=== PATIENT | female | born 2005 | race Caucasian/White ===

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

== ENCOUNTER → 2023-07-12 14:19 | Outpatient (CLI) | payer OTHER, SELFPAY ==
--- NOTE | 2023-07-12 14:22 | DI.RAD.S_ITS ---
PROCEDURE: XR LUMBAR SPINE 2-3V INDICATIONS: L I lifting injury L3-5 tender TECHNIQUE: 3 views of the lumbar spine were acquired. COMPARISON: None. FINDINGS: Bones: 5 [id number] vertebrae are present. There is normal bony alignment. No vertebral body compression fractures. No suspicious bony lesions. Soft tissues: Overlying bowel gas pattern is normal. No suspicious soft tissue calcifications. IMPRESSION: No acute bony abnormality. Dictated by: Adama Roland M.D. on 07/12/2023 at 14:52 Approved by: Adama Roland M.D. on 07/12/2023 at 14:52
== END ==
LOC: RAD 14:21
PROVIDERS: Family Provider Family Medicine; Referring Provider Student in an Organized Health Care Education/Training Program; Visit Provider Student in an Organized Health Care Education/Training Program
DX: S39.012A Strain of muscle, fascia and tendon of lower back, initial encounter (principal); M54.50 Low back pain, unspecified; X50.0XXA Overexertion from strenuous movement or load, initial encounter
CPT/HCPCS: 72100

== ENCOUNTER 2023-09-03 00:05 | Emergency (ER) | payer OTHER, MEDICAID, SELFPAY ==
[2023-09-03 00:09] VITALS: BP 134/74; PULSE 110; RESP 18; O2SAT 99; BMI 35.6
[2023-09-03 00:19] VITALS: PULSE 104; RESP 18; O2SAT 99
[2023-09-03 00:30] VITALS: BP 121/89; PULSE 121; O2SAT 99
--- NOTE | 2023-09-03 00:30 | PC.NURSE ---
patient sitting up in [place]. Call light in reach, seizure precautions in place.
--- NOTE | 2023-09-03 00:33 | ED.SEIZURE ---
HPI - Seizure General Chief Complaint: Seizure Stated Complaint: Seizures Time Seen by Provider: 09/03/23 00:31 Source: patient and EMS Mode of arrival: EMS History of Present Illness HPI Narrative: 18-year-old woman brought in by medics with reports of a seizure. She reportedly has a history of pseudoseizures had been on medications at 1 point but nothing for the last at least 3 years and no seizures in that timeframe. She states that she had a little bit of alcohol this evening but denies any other recreational drugs. Medics were called earlier this evening with reports of a seizure and she declined transport. She had a 2nd seizure shortly thereafter medics return and they to witnessed a grand mal tonic-clonic type seizure lasting approximately 50 seconds. She was not particularly confused afterward. There was no loss of bowel or bladder. No biting of her tongue and no significant abrasions or contusions from the seizure-like activity. Patient was given 5 mg of IM Versed by medics. She is appropriately sedated without specific complaints on arrival. She denies any recent fever, cough, chills. She does not state that today has been any more stressful than other days. Related Data Previous Rx's Medication Instructions Recorded epinephrine 0.3 mg/0.3 mL 0.3 mg (0.3 mL) IM ONCE #2 ea 01/29/20 injection, auto-injector Allergies Allergy/AdvReac Type Severity Reaction Status Date / Time hydrocortisone Allergy Severe BLISTERS Verified 07/12/23 13:26 [HYDROCORTISONE] Penicillins Allergy Severe ANAPHYLAXIS Verified 07/12/23 13:26 adhesive tape Allergy Intermediate Blisters/ra Verified 07/12/23 13:26 sh/redness. latex Allergy Intermediate Blisters, Verified 07/12/23 13:26 redness. phenytoin [From Dilantin] Allergy Intermediate Rash/Hives/ Verified 07/12/23 13:26 Blisters amoxicillin Allergy Mild RASH Verified 07/12/23 13:26 venom-honey bee Allergy Mild swelling Verified 07/12/23 13:26 and hives acetaminophen [From Tylenol] AdvReac Vomit Verified 07/12/23 13:26 Review of Systems Review of Systems Narrative: Pertinent positive and negative findings as per HPI Patient History Medical History Small for gestational age fetus Foot fracture, right (~2019) Leg fracture, right (~2018) Pneumonia Exercise-induced asthma (~2009) Hypothyroid (~2015) Early stage of Transgender Hematuria Therapeutic drug monitoring Rage attacks Proteinuria Encounter for oral contraception initial prescription (08/2019) Suicidal ideation Depression (~2014) 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 Social History marital status: unmarried,living together household members: significant other and children housing: house pets and animals: Yes (3 dogs: safe with baby.) special tika needs: No seatbelt use: always Smoking Status: Current every day smoker Tobacco: How many years used: 7 quit status: considering quitting second hand exposure: Yes alcohol intake: never substance use type: does not use and marijuana (Once in a [place], not since . ) well-balanced diet: daily or most days daily servings fruits/ve-4 caffeine: No Smoking Status: Current every day smoker tobacco type: cigarettes and vaping alcohol intake frequency: holidays/special occasions only Substance Use Type: marijuana Exam Initial Vital Signs Initial Vital Signs: Vital Signs Pulse Rate 110 H 09/03/23 00:09 Respiratory Rate 18 09/03/23 00:09 Blood Pressure 134/74 09/03/23 00:09 Pulse Oximetry 99 09/03/23 00:09 Oxygen Delivery Method Room Air 09/03/23 00:09 General: Slightly sedated and in no acute distress. Able to cooperate with exam. HEENT: Moist mucous membranes, normal sclera with reactive pupils, no injuries to her tongue Respiratory: Lungs are clear to auscultation, no wheezing no rales no rhonchi. Full and symmetrical air movement Cardiac: Regular rate and rhythm no murmurs no bruits Abdomen: Soft, nontender, good bowel tones, no flank pain Skin: Warm and dry, no rashes, no bruises Neurologic: Sedated from the eye and Versed, Grossly neurologically intact with no obvious asymmetries or abnormalities, she has not hyperreflexic she does not have any clonus Extremities: No trauma, well perfused Psych: Sedated with in admissions slightly lowered Course Orders Ordered: ED Orders 09/03/23 00:31 Complete Blood Count AUTO DIFF Stat Comprehensive Metabolic Panel Stat Ethanol (ETOH) Stat Urinalysis and Microscopic Stat urine tox [Urine Drug Screen, Rapid] Stat Vital Signs Vital signs: Vital Signs - 8 hr 09/03/23 00:09 09/03/23 00:19 Pulse Rate 110 H 104 H Respiratory Rate 18 18 Blood Pressure 134/74 Pulse Oximetry 99 99 Oxygen Delivery Method Room Air Room Air MDM - Seizure MDM Narrative Medical decision making narrative: CC: Seizure Complicating co-morbidities: History of pseudoseizures in the past, no seizures for the last 3 years. She has had a history of major depression with psychotic features Data collected from: patient Medical records reviewed: Prior ER visits, psychosocial notes and primary care notes are reviewed. Differential considered: Intoxication, pseudo-seizure, medication side effect, epileptic seizure. No suggestion of trauma do not suggest intracranial bleed and no suggestion of infection Exam documented above, pertinent findings include: Patient is sedated from the IM Versed and exam is otherwise benign with no suggestion of hyperreflexia Lab Test results independently reviewed as above. Pertinent findings: CBC shows mild leukocytosis without left shift. Suspect that this is demargination from seizure. No anemia Metabolic panel shows potassium at 2.9 remainder of labs are reassuring Urine appears contaminated with squamous cells mucus there are bacteria we will wait for culture, do not suspect urinary tract infection at this time Urine tox screen is negative Alcohol level is 59 Discussion: Patient demands to be discharged. She has a cousin and a friend who are willing to help take her home. Her grandparents are at home as him like they are frequently primary caregivers. I have suggested continued observation given the fact that she has had recurrent seizures today. She is fixated on getting to work at 6:00 a.m. and chooses to leave against medical advice. Against Medical Advice forms are filled out Discharge Plan Departure Patient Disposition: Left Against Medical Advice Clinical Impression: Seizure Prescriptions: No Action epinephrine 0.3 mg/0.3 mL auto-injector 0.3 mg IM ONCE Qty: 2 0RF Rx Instructions: as a single dose; may repeat once Stand Alone Forms: Patient Portal/API, Against Medical Advice
[2023-09-03 00:43] LABS: Add Manual Diff / Slide Review NO; Basophils Absolute Auto 100 /uL (0-100); Basophils Percent Auto 0.5 % (0-2); Eosinophils Absolute Auto 100 /uL (0-450); Eosinophils Percent Auto 0.9 % (2-4); Hematocrit 41.6 % (36-46); Lymphocytes Absolute Auto 4700 /uL (1100-4500); Lymphocytes Percent Auto 32.8 % (25-40); Mean Corpuscular HGB Conc 33.7 % (30-36); Mean Corpuscular Hemoglobin 28.4 PG (26-34); Mean Corpuscular Volume 84.2 fL (80-100); Monocytes Absolute Auto 800 /uL (0-900); Monocytes Percent Auto 5.4 % (3-14); Neutrophils Absolute Auto 8700 /uL (1500-7000); Neutrophils Percent Auto 60.4 % (50-75); Platelet Count 374 X10^3/uL (150-400); Red Blood Cell Count 4.94 X10^6/uL (4.0-5.2); Red Cell Distribution Width 13.6 % (11.6-14.8); White Blood Cell Count 14.4 X10^3/uL (4.5-11.0)
[2023-09-03 00:46] LABS: Alanine Aminotransferase 25 IU/L (<35); Albumin 4.8 g/dL (3.5-5.0); Albumin Globulin Ratio 1.3 (1.0-2.8); Alkaline Phosphatase 67 U/L (38-126); Aspartate Aminotransferase 32 IU/L (14-36); BUN Creatinine Ratio 13.9 (6-22); Bilirubin Total 0.7 mg/dL (0.2-1.3); Blood Urea Nitrogen 11 mg/dL (7-17); Calcium 9.5 mg/dL (8.4-10.2); Carbon Dioxide 15 mmol/L (22-32); Chloride 111 mmol/L (98-107); Estimated Glomerular Filt Rate > 60 mL/min (>60); Ethanol (ETOH) 59 mg/dL; Globulin 3.7 g/dL (1.7-4.1); Glucose 130 mg/dL (70-100); HEMOLYSIS < 15 (0-50); Sodium 144 mmol/L (137-145); Total Protein 8.5 g/dL (6.3-8.2)
[2023-09-03 00:46] LABS: Appearance Urine UA CLEAR; Bilirubin Urine UA NEGATIVE (NEGATIVE); Color Urine UA YELLOW; Glucose Urine UA NEGATIVE (Negative); Ketones Urine UA NEGATIVE (NEGATIVE); Leukocyte Esterase Urine UA NEGATIVE (NEGATIVE); Nitrite Urine UA NEGATIVE (Negative); Occult Blood Urine UA 1+ (Negative); Protein Urine UA TRACE (Negative); Specific Gravity Urine UA >=1.030 (1.000-1.035)
[2023-09-03 00:49] VITALS: BP 140/68; PULSE 98; RESP 10; O2SAT 98
[2023-09-03 00:49] LABS: UR Morphine/Opiate cutoff 300 Negative (Negative); Ur Creatinine Normal (Normal); Ur Specific Gravity Normal (Normal); Urine Amphetamines Negative (Negative); Urine Barbiturates Negative (Negative); Urine Benzodiazepines Negative (Negative); Urine Cocaine Negative (Negative); Urine MDMA Negative (Negative); Urine Methadone Negative (Negative); Urine Methamphetamines Negative (Negative); Urine Oxycodone Negative (Negative); Urine Phencyclidine Negative (Negative); Urine Tetrahydrocannabinol Negative (Negative); Urine Tricyclic Antidepressant Negative (Negative); Urine pH Normal (Normal)
[2023-09-03 00:49] LABS: Potassium 2.9 mmol/L (3.4-5.1)
[2023-09-03 00:52] LABS: Bacteria Urine Many (>30); RBC Urine 1-5/HPF (0-5/HPF); Squamous Epithelial Cell Urine 5-10 /HPF (0-5/HPF); Urine Volume 10mL (spun); WBC Urine 1-5/HPF (0-5/HPF)
[2023-09-03 00:53] LABS: Calcium Oxalate Crystals Urine Few; Culture Indicated Urine Cult Not Indicated; Mucus Urine 2+ (Negative)
--- NOTE | 2023-09-03 00:53 | PC.NURSE ---
Patient began pulling all monitoring off of her and states I just want to leave, I know how long it's going to to take, I want to go home. This nurse educated the patient on the risk of leaving against medical advise, patient verbalizes understanding and still choosing to leave. 00:59 Patient signed AMA form and was wheeled out to to family vehicle.
== END 2023-09-03 01:00 | disposition left against medical advice (07) ==
PROVIDERS: Emergency Provider Emergency Medicine; Family Provider Family Medicine
DX: G40.909 Epilepsy, unspecified, not intractable, without status epilepticus (principal)
CPT/HCPCS: 80053; 80305; 80320; 81001; 81003; 85025; 99282; 99283

== ENCOUNTER 2024-02-27 13:07 | Emergency (ER) | payer OTHER, MEDICAID, SELFPAY ==
[2024-02-27 13:12] VITALS: BP 147/78; PULSE 94; RESP 24; TEMP 36.8; O2SAT 96; BMI 40.2
--- NOTE | 2024-02-27 13:19 | DI.RAD.S_ITS ---
PROCEDURE: XR CHEST 1V INDICATIONS: Shortness of breath TECHNIQUE: One view of the chest was acquired. COMPARISON: [facility], CR, XR CHEST 1V, 10/11/2019, 23:51. FINDINGS: Surgical changes and devices: None. Lungs and pleura: Left lung base consolidation. No drainable effusions. Mediastinum: Normal heart size Bones and chest wall: Unremarkable IMPRESSION: Left lung base consolidations suspicious for infection. Consider future imaging surveillance to assess for resolution. Dictated by: Devan Brennan M.D. on 02/27/2024 at 14:29 Approved by: Devan Brennan M.D. on 02/27/2024 at 14:29
[2024-02-27 13:36] LABS: Add Manual Diff / Slide Review NO; Basophils Absolute Auto 100 /uL (0-100); Basophils Percent Auto 0.6 % (0-2); Eosinophils Absolute Auto 200 /uL (0-450); Eosinophils Percent Auto 1.6 % (2-4); Hematocrit 42.7 % (36-46); Hemoglobin 14.3 g/dL (12.0-16.0); Lymphocytes Absolute Auto 2800 /uL (1100-4500); Mean Corpuscular HGB Conc 33.5 % (30-36); Mean Corpuscular Hemoglobin 28.9 PG (26-34); Mean Corpuscular Volume 86.3 fL (80-100); Monocytes Absolute Auto 700 /uL (0-900); Monocytes Percent Auto 6.1 % (3-14); Neutrophils Absolute Auto 7600 /uL (1500-7000); Neutrophils Percent Auto 66.7 % (50-75); Platelet Count 324 X10^3/uL (150-400); Red Blood Cell Count 4.95 X10^6/uL (4.0-5.2); Red Cell Distribution Width 13.2 % (11.6-14.8); White Blood Cell Count 11.3 X10^3/uL (4.5-11.0)
--- NOTE | 2024-02-27 13:43 | ED_ITS ---
HPI - SOB/Dyspnea General Chief Complaint: Shortness of Breath/Dyspnea Stated Complaint: pneumonia not getting better, vomiting blood Time Seen by Provider: 02/27/24 13:24 History of Present Illness HPI Narrative: 19-year-old female presents for nausea and vomiting. Diagnosed with pneumonia 2 days ago, began vomiting yesterday and has not been able to keep her antibiotics down. She was diagnosed with pneumonia at [facility] and started on azithromycin and doxycycline. Related Data Previous Rx's Medication Instructions Recorded epinephrine 0.3 mg/0.3 mL 0.3 mg (0.3 mL) IM ONCE #2 ea 01/29/20 injection, auto-injector ondansetron 4 mg disintegrating 4 mg PO Q8H PRN nausea and 02/27/24 tablet vomiting #30 tabs promethazine 25 mg tablet 25 mg PO Q6H PRN nausea and 02/27/24 vomiting #30 tabs Allergies Allergy/AdvReac Type Severity Reaction Status Date / Time hydrocortisone Allergy Severe BLISTERS Verified 02/27/24 13:12 [HYDROCORTISONE] Penicillins Allergy Severe ANAPHYLAXIS Verified 02/27/24 13:12 adhesive tape Allergy Intermediate Blisters/ra Verified 02/27/24 13:12 sh/redness. latex Allergy Intermediate Blisters, Verified 02/27/24 13:12 redness. 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 Social History marital status: unmarried,living together household members: significant other and children housing: house pets and animals: Yes (3 dogs: safe with baby.) special tika needs: No seatbelt use: always Smoking Status: Current every day smoker Tobacco: How many years used: 7 quit status: considering quitting second hand exposure: Yes alcohol intake: never substance use type: does not use and marijuana (Once in a [place], not since . ) well-balanced diet: daily or most days daily servings fruits/ve-4 caffeine: No Smoking Status: Current every day smoker tobacco type: cigarettes and vaping alcohol intake frequency: holidays/special occasions only Substance Use Type: marijuana Exam Initial Vital Signs Initial Vital Signs: Vital Signs Temperature 98.3 F 02/27/24 13:12 Pulse Rate 94 H 02/27/24 13:12 Respiratory Rate 24 02/27/24 13:12 Blood Pressure 147/78 H 02/27/24 13:12 Pulse Oximetry 96 02/27/24 13:12 Oxygen Delivery Method Room Air 02/27/24 13:12 Const: Awake, alert, no acute distress, nontoxic appearing Cardiac: regular rate, regular rhythm RESP: unlabored, speaking in complete sentences without dyspnea GI: Soft, nontender, nondistende Skin: Warm, Dry, intact, no rashes Neuro: AO x3, CN II-XII grossly intact, moves all extremities Course Orders Ordered: Discontinued Medications Droperidol (Droperidol 5 Mg/2 Ml Vial) 2.5 mg IV NOW ONE Stop: 02/27/24 14:40 Last Admin: 02/27/24 14:45 Dose: 2.5 mg Documented By: MANOJ Sodium Chloride (Normal Saline 0.9%) 1,000 mls @ 1,000 mls/hr IV BOLUS ONE Stop: 02/27/24 14:42 Last Infusion: 02/27/24 14:49 Dose: Infused Documented By: Admin: 02/27/24 13:51 Dose: 1,000 mls/hr Documented By: MANOJ Ondansetron HCl (Ondansetron 4 Mg/2 Ml Inj) 4 mg IV NOW ONE Stop: 02/27/24 13:33 Last Admin: 02/27/24 13:51 Dose: 4 mg Documented By: MANOJ Vital Signs Vital signs: Vital Signs - 8 hr 02/27/24 13:12 Temperature 98.3 F Pulse Rate 94 H Respiratory Rate 24 Blood Pressure 147/78 H Pulse Oximetry 96 Oxygen Delivery Method Room Air MDM - SOB/Dyspnea Differential Diagnosis Differential diagnosis: Likely acute exacerbation of chronic obstructive airways disease, community acquired pneumonia and asthma with exacerbation Lab Data 02/27/24 13:28 02/27/24 13:28 Labs: Lab Results 02/27/24 Range/Units 13:28 WBC 11.3 H (4.5-11.0) X10^3/uL RBC 4.95 (4.0-5.2) X10^6/uL Hgb 14.3 (12.0-16.0) g/dL Hct 42.7 (36-46) % MCV 86.3 (80-100) fL MCH 28.9 (26-34) PG MCHC 33.5 (30-36) % RDW 13.2 (11.6-14.8) % Plt Count 324 (150-400) X10^3/uL Neut % (Auto) 66.7 (50-75) % Lymph % (Auto) 25.0 (25-40) % Iron % (Auto) 6.1 (3-14) % Eos % (Auto) 1.6 L (2-4) % Baso % (Auto) 0.6 (0-2) % Neut # (Auto) 7600 H (4143-6436) /uL Lymph # (Auto) 2800 (6200-9066) /uL Iron # (Auto) 700 (0-900) /uL Eos # (Auto) 200 (0-450) /uL Baso # (Auto) 100 (0-100) /uL Sodium 139 (137-145) mmol/L Potassium 4.2 (3.4-5.1) mmol/L Chloride 111 H (98-107) mmol/L Carbon Dioxide 18 L (22-32) mmol/L BUN 8 (7-17) mg/dL Creatinine 0.58 (0.52-1.04) mg/dL Estimated GFR > 60 (>60) mL/min BUN/Creatinine Ratio 13.8 (6-22) Glucose 89 (70-100) mg/dL Lactate 1.3 (0.7-2.1) mmol/L Calcium 9.1 (8.4-10.2) mg/dL Total Bilirubin 0.6 (0.2-1.3) mg/dL AST 26 (14-36) IU/L ALT 21 (<35) IU/L Alkaline Phosphatase 51 (38-126) U/L Troponin I < 0.012 (0.01-0.034) ng/mL Total Protein 7.7 (6.3-8.2) g/dL Albumin 4.2 (3.5-5.0) g/dL Globulin 3.5 (1.7-4.1) g/dL Albumin/Globulin Ratio 1.2 (1.0-2.8) Imaging Data Chest x-ray: Radiologist's Impression: PROCEDURE: XR CHEST 1V INDICATIONS: Shortness of breath TECHNIQUE: One view of the chest was acquired. COMPARISON: [facility], , XR CHEST 1V, 10/11/2019, 23:51. FINDINGS: Surgical changes and devices: None. Lungs and pleura: Left lung base consolidation. No drainable effusions. Mediastinum: Normal heart size Bones and chest wall: Unremarkable IMPRESSION: Left lung base consolidations suspicious for infection. Consider future imaging surveillance to assess for resolution. Dictated by: Devan Brennan M.D. on 02/27/2024 at 14:29 Approved by: Devan Brennan M.D. on 02/27/2024 at 14:29 [facility] Narrative Medical decision making narrative: Nontoxic patient with nausea and vomiting. Unable to keep her antibiotics down. Patient is on an appropriate antibiotic regimen for her condition. Laboratory work reviewed, no significant abnormalities identified. Patient given nausea medications and subsequently able to tolerate po. Patient was counseled to continue to take her antibiotics as previously prescribed. Nausea medication sent to pharmacy of choice. Discharge Plan Departure Patient Disposition: Home Clinical Impression: Pneumonia, Nausea & vomiting Instructions: Nausea and Vomiting-Adult Activity Restrictions/Additional Instructions: Continue to take your antibiotics as prescribed. Nausea medication has been sent to your pharmacy. Prescriptions: New ondansetron 4 mg tablet,disintegrating 4 mg PO Q8H PRN (Reason: nausea and vomiting) Qty: 30 0RF promethazine 25 mg tablet 25 mg PO Q6H PRN (Reason: nausea and vomiting) Qty: 30 0RF No Action epinephrine 0.3 mg/0.3 mL auto-injector 0.3 mg IM ONCE Qty: 2 0RF Rx Instructions: as a single dose; may repeat once Stand Alone Forms: Patient Portal/API
[2024-02-27 13:48] LABS: Lactate (Lactic Acid) 1.3 mmol/L (0.7-2.1)
[2024-02-27 13:50] LABS: Alanine Aminotransferase 21 IU/L (<35); Albumin 4.2 g/dL (3.5-5.0); Albumin Globulin Ratio 1.2 (1.0-2.8); Alkaline Phosphatase 51 U/L (38-126); Aspartate Aminotransferase 26 IU/L (14-36); BUN Creatinine Ratio 13.8 (6-22); Bilirubin Total 0.6 mg/dL (0.2-1.3); Blood Urea Nitrogen 8 mg/dL (7-17); Calcium 9.1 mg/dL (8.4-10.2); Carbon Dioxide 18 mmol/L (22-32); Chloride 111 mmol/L (98-107); Estimated Glomerular Filt Rate > 60 mL/min (>60); Globulin 3.5 g/dL (1.7-4.1); Glucose 89 mg/dL (70-100); HEMOLYSIS 48 (0-50); Potassium 4.2 mmol/L (3.4-5.1); Sodium 139 mmol/L (137-145); Total Protein 7.7 g/dL (6.3-8.2)
[2024-02-27] MEDS: ONDANSETRON 4 MG/2 ML INJ IV (13:51)
[2024-02-27] MEDS: SODIUM CHLORIDE 0.9% 1,000 ML 1000 ML IV (13:51)
[2024-02-27 14:01] LABS: Troponin I < 0.012 ng/mL (0.01-0.034)
[2024-02-27] MEDS: DROPERIDOL 5 MG/2 ML VIAL 2.5 MG IV (14:45)
[2024-02-27 15:07] VITALS: BP 105/56; PULSE 76; RESP 16; O2SAT 97
[2024-02-27 15:08] VITALS: BP 105/56; PULSE 80; O2SAT 99
== END 2024-02-27 15:08 | disposition home or self-care (01) ==
PROVIDERS: Emergency Medicine; Emergency Provider Emergency Medicine; Family Provider Family Medicine
DX: J18.9 Pneumonia, unspecified organism (principal); R11.2 Nausea with vomiting, unspecified
CPT/HCPCS: 36415; 71045; 80053; 83605; 84484; 85025; 96361; 96374; 96375; 99284; J1790; J2405

== ENCOUNTER 2024-06-20 19:53 | Emergency (ER) | payer OTHER, SELFPAY ==
[2024-06-20 19:56] VITALS: BP 133/68; PULSE 84; RESP 20; TEMP 36.9; O2SAT 96; BMI 43.5
[2024-06-20 20:29] LABS: Add Manual Diff / Slide Review NO; Basophils Absolute Auto 100 /uL (0-100); Basophils Percent Auto 1.2 % (0-2); Eosinophils Absolute Auto 300 /uL (0-450); Eosinophils Percent Auto 2.5 % (2-4); Hematocrit 41.2 % (36-46); Hemoglobin 13.8 g/dL (12.0-16.0); Lymphocytes Absolute Auto 3700 /uL (1100-4500); Lymphocytes Percent Auto 36.2 % (25-40); Mean Corpuscular HGB Conc 33.4 % (30-36); Mean Corpuscular Hemoglobin 29.6 PG (26-34); Mean Corpuscular Volume 88.6 fL (80-100); Monocytes Absolute Auto 500 /uL (0-900); Neutrophils Absolute Auto 5600 /uL (1500-7000); Neutrophils Percent Auto 55.1 % (50-75); Platelet Count 342 X10^3/uL (150-400); Red Blood Cell Count 4.65 X10^6/uL (4.0-5.2); Red Cell Distribution Width 14.2 % (11.6-14.8); White Blood Cell Count 10.2 X10^3/uL (4.5-11.0)
[2024-06-20 20:39] LABS: Bacteria Urine Few (2-10); RBC Urine 0-1/HPF (0-5/HPF); Squamous Epithelial Cell Urine 0-1 /HPF (0-5/HPF); Urine Volume 10mL (spun); WBC Urine 0-1/HPF (0-5/HPF)
[2024-06-20 20:40] LABS: BUN Creatinine Ratio 26.2 (6-22); Blood Urea Nitrogen 17 mg/dL (7-17); Calcium 9.3 mg/dL (8.4-10.2); Carbon Dioxide 23 mmol/L (22-32); Chloride 108 mmol/L (98-107); Estimated Glomerular Filt Rate > 60 mL/min (>60); Glucose 106 mg/dL (70-100); HEMOLYSIS 21 (0-50); Potassium 4.4 mmol/L (3.4-5.1); Sodium 138 mmol/L (137-145)
[2024-06-20 20:40] LABS: Culture Indicated Urine Cult Not Indicated
[2024-06-20 21:19] VITALS: BP 116/56; PULSE 78; RESP 20; O2SAT 97
[2024-06-20 21:30] VITALS: PULSE 81; O2SAT 98
[2024-06-20 21:31] VITALS: BP 122/62; PULSE 80; O2SAT 97
[2024-06-20 22:02] VITALS: PULSE 84; RESP 20; O2SAT 99
--- NOTE | 2024-06-20 22:02 | PC.NURSE ---
Pt ambulatory to restroom without difficulty or assistance
[2024-06-20 22:22] LABS: HCG Quantitative /Beta subunit < 2.39 mIU/mL
--- NOTE | 2024-06-20 22:25 | PC.NURSE ---
Pt ambulatory to restroom without difficulty or assistance
--- NOTE | 2024-06-20 23:53 | ED.FEMALEGU ---
HPI - Female Genitourinary General Chief complaint: Vaginal Bleeding Stated complaint: poss miscarriage Time Seen by Provider: 06/20/24 23:47 Source: patient Mode of arrival: Ambulatory History of Present Illness HPI Narrative: Patient is a healthy 19-year-old female who presents today with vaginal bleeding. She reports that her last menstrual period set the beginning of the month. She typically only has 1 month so this is early for her. She also claims that she has bleeding quite heavily going through at least 2 tampons in 1 hour and has all day. She reports increased menstrual cramping and pain. She took some Tylenol ibuprofen earlier but it has worn off. She denies any dizziness or lightheadedness. She is worried that she could be miscarrying. Denies any dizziness or lightheadedness. Related Data Previous Rx's Medication Instructions Recorded epinephrine 0.3 mg/0.3 mL 0.3 mg (0.3 mL) IM ONCE #2 ea 01/29/20 injection, auto-injector ondansetron 4 mg disintegrating 4 mg PO Q8H PRN nausea and 02/27/24 tablet vomiting #30 tabs promethazine 25 mg tablet 25 mg PO Q6H PRN nausea and 02/27/24 vomiting #30 tabs Allergies Allergy/AdvReac Type Severity Reaction Status Date / Time hydrocortisone Allergy Severe BLISTERS Verified 02/27/24 13:12 [HYDROCORTISONE] Penicillins Allergy Severe ANAPHYLAXIS Verified 02/27/24 13:12 adhesive tape Allergy Intermediate Blisters/ra Verified 02/27/24 13:12 sh/redness. latex Allergy Intermediate Blisters, Verified 02/27/24 13:12 redness. 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 tobacco type: cigarettes and vaping Exam Initial Vital Signs Initial Vital Signs: Vital Signs Temperature 98.5 F 06/20/24 19:56 Pulse Rate 84 06/20/24 19:56 Respiratory Rate 20 06/20/24 19:56 Blood Pressure 133/68 06/20/24 19:56 Pulse Oximetry 96 06/20/24 19:56 Oxygen Delivery Method Room Air 06/20/24 19:56 GENERAL: Alert well-appearing 19-year-old female and in no acute distress. HEENT: Head atraumatic,EOMI, pupils reactive, face symmetric, moist mucous membranes CARDIOVASCULAR: Regular rate and rhythm without murmurs, rubs or gallops. RESPIRATORY: Breath sounds equal bilaterally, no wheezes rales or rhonchi. ABDOMEN: Soft, nontender. Normoactive bowel sounds all 4 quadrants. No guarding or rebound. PELVIC: External genitalia is normal, small amount of bleeding no significant amount of blood when abdomen is push no large clot, no vaginal discharge, no odor,, no adnexal tenderness : No CVA tenderness EXTREMITIES: Normal range of motion, no clubbing or edema. Neurovascularly intact NEUROLOGICAL: Alert and oriented x4.Normal gait and speech. Cranial nerves II through XII grossly intact. SKIN: Warm, dry, no laceration, no petechiae, no rashes or lesions. Course Orders Ordered: Discontinued Medications Ketorolac Tromethamine (Ketorolac 30 Mg/Ml Vial) 30 mg IM NOW ONE Stop: 06/20/24 23:54 Last Admin: 06/21/24 00:02 Dose: 30 mg Documented By: JENNIFER Vital Signs Vital signs: Vital Signs - 8 hr 06/20/24 22:02 06/21/24 00:03 06/21/24 00:04 Pulse Rate 84 68 68 Respiratory Rate 20 20 Blood Pressure Pulse Oximetry 99 98 97 Oxygen Delivery Method Room Air Room Air 06/21/24 00:04 Pulse Rate Respiratory Rate Blood Pressure 111/65 Pulse Oximetry Oxygen Delivery Method MDM - Female Genitourinary Lab Data 06/20/24 20:16 06/20/24 20:16 Labs: Lab Results 06/20/24 06/20/24 Range/Units 20:05 20:16 WBC 10.2 (4.5-11.0) X10^3/uL RBC 4.65 (4.0-5.2) X10^6/uL Hgb 13.8 (12.0-16.0) g/dL Hct 41.2 (36-46) % MCV 88.6 (80-100) fL MCH 29.6 (26-34) PG MCHC 33.4 (30-36) % RDW 14.2 (11.6-14.8) % Plt Count 342 (150-400) X10^3/uL Neut % (Auto) 55.1 (50-75) % Lymph % (Auto) 36.2 (25-40) % [place] % (Auto) 5.0 (3-14) % Eos % (Auto) 2.5 (2-4) % Baso % (Auto) 1.2 (0-2) % Neut # (Auto) 5600 (7592-8238) /uL Lymph # (Auto) 3700 (9454-8301) /uL [place] # (Auto) 500 (0-900) /uL Eos # (Auto) 300 (0-450) /uL Baso # (Auto) 100 (0-100) /uL Sodium 138 (137-145) mmol/L Potassium 4.4 (3.4-5.1) mmol/L Chloride 108 H (98-107) mmol/L Carbon Dioxide 23 (22-32) mmol/L BUN 17 (7-17) mg/dL Creatinine 0.65 (0.52-1.04) mg/dL Estimated GFR > 60 (>60) mL/min BUN/Creatinine Ratio 26.2 H (6-22) Glucose 106 H (70-100) mg/dL Calcium 9.3 (8.4-10.2) mg/dL HCG, Quant < 2.39 mIU/mL Urine RBC 0-1/hpf (0-5/HPF) Urine WBC 0-1/hpf (0-5/HPF) Ur Squamous Epith Cells 0-1 /hpf (0-5/HPF) Urine Bacteria Few (2-10) H (None) Ur Culture Indicated? Cult not indicated Vol Urine Centrifuged 10ml (spun) Point of Care Testing Test Results Negative Urine Dip Bedside Urine Glucose Negative Bedside Urine Bilirubin - Negative Bedside Urine Ketone - Negative Urine Specific [place] 1.020 Bedside Urine Occult Blood +++ Bedside Urine pH 6 Bedside Urine Protein - Negative Bedside Urine Urobilinogen - Negative Bedside Urine Nitrite - Negative Bedside Urine Leukocytes - Negative Esterase MDM Narrative Medical decision making narrative: MDM CC: Vaginal bleeding Complicating co-morbidities: None Differential considered: Miscarriage, dysfunctional uterine, hemorrhage Exam documented above, pertinent findings include: Well-appearing 19-year-old female. She does have waiting on exam but not excessive Lab Test results independently reviewed as above. Pertinent findings: Negative urine negative HCG Hemoglobin 13.8, hematocrit 41.2 platelets 342 Sodium 138 potassium 4.4 chloride 108 carbon dioxide 23 BUN 17 creatinine 0.65 Imaging studies independently reviewed: None Treatments: Toradol Re-evaluations: Toradol help some with pain Discussion: Patient has vaginal bleeding changing super tampon every hour. Hemodynamically stable. On exam she does not have excessive bleeding. While in the ED for over 4 hours she went through 1 pad which does not appear to be grossly soaked. At this time I do not think she needs any sort of imaging. I suspect this is her normal menstrual cycle. Recommend that she monitor and wait. She has a negative urine and negative HCG this is not a miscarriage. Discussed the strict warning signs with her about when to return to ED Discharge Plan Departure Patient Disposition: Home Clinical Impression: Dysfunctional uterine bleeding Instructions: DI for Vaginal Bleeding Activity Restrictions/Additional Instructions: *You have been diagnosed with dysfunctional uterine bleeding *What to do: At this time I would think that the bleeding would decrease. Monitor it tomorrow. *Continue to take medications as directed *Follow up with your primary care provider in 2-3 days or call [phone] *Return to ER if you should have excessive vaginal bleeding more than 2 super tampons in 1 hour increased abdominal pain dizziness lightheadedness or any new, worsening or concerning symptoms Prescriptions: No Action epinephrine 0.3 mg/0.3 mL auto-injector 0.3 mg IM ONCE Qty: 2 0RF Rx Instructions: as a single dose; may repeat once ondansetron 4 mg tablet,disintegrating 4 mg PO Q8H PRN (Reason: nausea and vomiting) Qty: 30 0RF promethazine 25 mg tablet 25 mg PO Q6H PRN (Reason: nausea and vomiting) Qty: 30 0RF Stand Alone Forms: Patient Portal/API/Survey
[2024-06-21] MEDS: KETOROLAC 30 MG/ML VIAL IM (00:02)
[2024-06-21 00:03] VITALS: PULSE 68; O2SAT 98
[2024-06-21 00:04] VITALS: BP 111/65; PULSE 68; RESP 20; O2SAT 97
--- NOTE | 2024-06-21 00:14 | PC.NURSE ---
Prepped for pelvic exam
--- NOTE | 2024-06-21 00:32 | PC.NURSE ---
Pelvic completed by Dr. Nunez
== END 2024-06-21 00:40 | disposition home or self-care (01) ==
PROVIDERS: Emergency Provider Emergency Medicine; Family Provider Family Medicine
DX: N93.8 Other specified abnormal uterine and vaginal bleeding (principal)
CPT/HCPCS: 80048; 81003; 81015; 81025; 84702; 85025; 96372; 99283; 99284; J1885

== ENCOUNTER 2024-07-25 11:29 | Emergency (ER) | payer OTHER, SELFPAY ==
[2024-07-25 11:35] VITALS: BP 135/75; PULSE 86; RESP 16; TEMP 36.2; O2SAT 97; BMI 44.6
--- NOTE | 2024-07-25 11:57 | ED_ITS ---
HPI - Abdominal Pain General Chief Complaint: Abdominal Pain Stated Complaint: ULQ abd px, rash left side Time Seen by Provider: 07/25/24 11:45 Source: patient Mode of arrival: Ambulatory History of Present Illness HPI narrative: 19yoF presents for 2 days of LUQ abdominal pain. Patient states that her abdomen felt hard out of nowhere yesterday and since then has had pain. Reports a burning sensation with po intake. Taken tylenol, ibuprofen without relief at home. Denies history of major medical problems. Does not take medications regularly. Denies history of intra-abdominal surgeries. Related Data Previous Rx's Medication Instructions Recorded epinephrine 0.3 mg/0.3 mL 0.3 mg (0.3 mL) IM ONCE #2 ea 01/29/20 injection, auto-injector ondansetron 4 mg disintegrating 4 mg PO Q8H PRN nausea and 02/27/24 tablet vomiting #30 tabs promethazine 25 mg tablet 25 mg PO Q6H PRN nausea and 02/27/24 vomiting #30 tabs famotidine 40 mg tablet (Pepcid) 40 mg PO DAILY #30 tabs 07/25/24 omeprazole 40 mg capsule,delayed 40 mg PO DAILY #30 caps 07/25/24 release ondansetron 4 mg disintegrating 4 mg PO Q8H PRN nausea and 07/25/24 tablet vomiting #30 tabs sucralfate 1 gram tablet (Carafate) 1 g PO QACHS #60 tabs 07/25/24 Allergies Allergy/AdvReac Type Severity Reaction Status Date / Time Penicillins Allergy Severe ANAPHYLAXIS Verified 07/25/24 11:35 venom-honey bee Allergy Mild swelling Verified 07/25/24 11:35 and hives hydrocortisone AdvReac Severe BLISTERS Verified 07/25/24 11:35 [HYDROCORTISONE] adhesive tape AdvReac Intermediate Blisters/ra Verified 07/25/24 11:35 sh/redness. latex AdvReac Intermediate Blisters, Verified 07/25/24 11:35 redness. 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 Social History marital status: unmarried,living together household members: significant other and children housing: house pets and animals: Yes (3 dogs: safe with baby.) special tika needs: No seatbelt use: always Smoking Status: Current every day smoker Tobacco: How many years used: 7 quit status: considering quitting second hand exposure: Yes alcohol intake: never substance use type: does not use and marijuana (Once in a [place], not since . ) well-balanced diet: daily or most days daily servings fruits/ve-4 caffeine: No Smoking Status: Current every day smoker tobacco type: cigarettes and vaping alcohol intake frequency: holidays/special occasions only Exam Initial Vital Signs Initial Vital Signs: Vital Signs Temperature 97.2 F L 07/25/24 11:35 Pulse Rate 86 07/25/24 11:35 Respiratory Rate 16 07/25/24 11:35 Blood Pressure 135/75 07/25/24 11:35 Pulse Oximetry 97 07/25/24 11:35 Oxygen Delivery Method Room Air 07/25/24 11:35 Const: Awake, alert, no acute distress, nontoxic appearing Cardiac: regular rate, regular rhythm RESP: unlabored, speaking in complete sentences without dyspnea GI: Soft, nontender, nondistended, no rebound, no guarding, no masses Skin: Warm, Dry, intact, no rashes Neuro: AO x3, CN II-XII grossly intact, moves all extremities Course Orders Ordered: ED Orders 07/25/24 11:42 Urine Microscopic Stat Discontinued Medications Al Hydrox/Mg Hydrox/Simethicone (Mag Hydrox/Alum/Simeth 30 Ml Udc) 30 ml PO NOW ONE Stop: 07/25/24 11:58 Last Admin: 07/25/24 12:07 Dose: 30 ml Documented By: Lidocaine HCl (Lidocaine Viscous 2% 15 Ml Solution) 15 ml PO NOW ONE Stop: 07/25/24 11:58 Last Admin: 07/25/24 12:06 Dose: 15 ml Documented By: Vital Signs Vital signs: Vital Signs - 8 hr 07/25/24 11:35 07/25/24 12:11 Temperature 97.2 F L 98.2 F Pulse Rate 86 66 Respiratory Rate 16 18 Blood Pressure 135/75 110/78 Pulse Oximetry 97 100 Oxygen Delivery Method Room Air Room Air MDM - Abdominal Pain Differential Diagnosis Differential diagnosis: Likely abdominal pain, gastroenteritis and other (Gastritis) Lab Data Labs: Lab Results 07/25/24 Range/Units 11:42 Urine RBC 1-5/hpf (0-5/HPF) Urine WBC 0-1/hpf (0-5/HPF) Ur Squamous Epith Cells 1-5 /hpf (0-5/HPF) Urine Bacteria None seen (None) Ur Culture Indicated? Cult not indicated Vol Urine Centrifuged 10ml (spun) Point of care testing: Point of Care Testing Test Results Negative Urine Dip Bedside Urine Glucose Negative Bedside Urine Bilirubin - Negative Bedside Urine Ketone - Negative Urine Specific [place] 1.015 Bedside Urine Occult Blood +/- Bedside Urine pH 7.5 Bedside Urine Protein - Negative Bedside Urine Urobilinogen - Negative Bedside Urine Nitrite - Negative Bedside Urine Leukocytes - Negative Esterase MDM Narrative Medical decision making narrative: Well-appearing patient with 1 day of symptoms. She states that her abdomen feels ?hard?, however on exam there is are no masses, no firmness to palpation. Abdomen soft without rebound or guarding. Pain is isolated to the left upper quadrant. Negative Morris's sign. Pain worse after eating, likely gastritis versus peptic ulcer disease. With otherwise benign exam and short duration of symptoms no indication for labs or imaging at this time. Patient was counseled on presumptive diagnosis. She will be started on antacids and Carafate. She was counseled on dietary modifications for gastritis. She was advised that if symptoms do not improve after 2 weeks she should follow up with either a primary care doctor, GI doctor, or general surgeon to discuss possible EGD. Patient expressed understanding of plan. Requested a note for work, which was provided. Discharge Plan Departure Patient Disposition: Home Clinical Impression: Abdominal pain, left upper quadrant Instructions: DI for Gastritis Activity Restrictions/Additional Instructions: Your exam and history is most consistent with gastritis. Take the prescribed medications for your symptoms. It may take up to 2 weeks before you notice resolution of your symptoms. Avoid ibuprofen, tobacco, alcohol, spicy foods, acidic foods, as these may worsen your pain. If your symptoms persist despite diet changes and taking these medications you should follow up with either a GI doctor or a general surgeon. Prescriptions: New omeprazole 40 mg capsule,delayed release(DR/EC) 40 mg PO DAILY Qty: 30 0RF famotidine [Pepcid] 40 mg tablet 40 mg PO DAILY Qty: 30 0RF ondansetron 4 mg tablet,disintegrating 4 mg PO Q8H PRN (Reason: nausea and vomiting) Qty: 30 0RF sucralfate [Carafate] 1 gram tablet 1 g PO QACHS Qty: 60 0RF No Action epinephrine 0.3 mg/0.3 mL auto-injector 0.3 mg IM ONCE Qty: 2 0RF Rx Instructions: as a single dose; may repeat once ondansetron 4 mg tablet,disintegrating 4 mg PO Q8H PRN (Reason: nausea and vomiting) Qty: 30 0RF promethazine 25 mg tablet 25 mg PO Q6H PRN (Reason: nausea and vomiting) Qty: 30 0RF Referrals: Doe Saini MD [Physician] - Stand Alone Forms: Patient Portal/API/Survey, Work Release Note
[2024-07-25] MEDS: LIDOCAINE VISCOUS 2% 15 ML SOLUTION PO (12:06)
[2024-07-25] MEDS: MAG HYDROX/ALUM/SIMETH 30 ML UDC PO (12:07)
[2024-07-25 12:11] VITALS: BP 110/78; PULSE 66; RESP 18; TEMP 36.8; O2SAT 100
[2024-07-25 12:24] LABS: Bacteria Urine None Seen; Culture Indicated Urine Cult Not Indicated; RBC Urine 1-5/HPF (0-5/HPF); Squamous Epithelial Cell Urine 1-5 /HPF (0-5/HPF); Urine Volume 10mL (spun); WBC Urine 0-1/HPF (0-5/HPF)
== END 2024-07-25 12:12 | disposition home or self-care (01) ==
PROVIDERS: Emergency Provider Emergency Medicine; Family Provider Family Medicine
DX: R10.12 Left upper quadrant pain (principal)
CPT/HCPCS: 81003; 81015; 81025; 99283

== ENCOUNTER → 2024-08-31 17:17 | Outpatient (CLI) | payer OTHER, SELFPAY ==
[2024-08-31 17:59] LABS: Influenza A - CEPHEID Flu A NEGATIVE (NEGATIVE); Influenza B - CEPHEID Flu B POSITIVE (NEGATIVE); Respiratory Syncytial Virus Negative (Negative)
[2024-08-31 18:00] LABS: COVID-19 CEPHEID 4-PLEX PCR Negative (Negative)
== END ==
PROVIDERS: Family Provider Family Medicine; Visit Provider Registered Nurse
DX: R05.1 Acute cough (principal)
CPT/HCPCS: 87635; 87400 ×2; 87420; 0241U

== ENCOUNTER 2024-09-01 20:29 | Emergency (ER) | payer OTHER, SELFPAY ==
[2024-09-01 20:35] VITALS: BP 117/77; PULSE 92; RESP 18; TEMP 37.8; O2SAT 94; BMI 38.4
== END 2024-09-02 00:08 | disposition left against medical advice (07) ==
PROVIDERS: Emergency Provider Emergency Medicine; Family Provider Family Medicine
CPT/HCPCS: 99281

== ENCOUNTER → 2024-09-05 10:56 | Outpatient (CLI) | payer OTHER, SELFPAY | PROVIDERS: Family Provider Family Medicine; Visit Provider Nurse Practitioner Family | DX: J02.9 Acute pharyngitis, unspecified (principal) | CPT/HCPCS: 87070 ==

== ENCOUNTER 2025-02-08 17:14 | Outpatient (CLI) | payer OTHER, SELFPAY ==
[2025-02-08] MEDS: FOSFOMYCIN 3 GM PACKET PO (17:52)
== END 2025-02-08 17:54 | disposition home or self-care (01) ==
LOC: OB 02-09 14:19
PROVIDERS: Family Provider Family Medicine; PCP Family Medicine; Referring Provider Nurse Practitioner Obstetrics & Gynecology; Visit Provider Nurse Practitioner Obstetrics & Gynecology
DX: O23.41 Unspecified infection of urinary tract in pregnancy, first trimester (principal); N39.0 Urinary tract infection, site not specified; O99.331 Smoking (tobacco) complicating pregnancy, first trimester; F17.210 Nicotine dependence, cigarettes, uncomplicated; Z3A.10 10 weeks gestation of pregnancy
CPT/HCPCS: 87086; G0378; G0379

== ENCOUNTER → 2025-02-08 19:30 | Outpatient (ROUT) | payer OTHER, SELFPAY | PROVIDERS: Family Provider Family Medicine; PCP Family Medicine; Visit Provider Nurse Practitioner Obstetrics & Gynecology | DX: R30.0 Dysuria (principal) | CPT/HCPCS: 87086 ==

== ENCOUNTER → 2025-04-15 11:05 | Outpatient (CLI) | payer OTHER, SELFPAY ==
--- NOTE | 2025-04-15 11:06 | DI.US.S_ITS ---
PROCEDURE: OB >= 14 WEEKS FETUS INDICATIONS: 20 weeks scan OUTSIDE/PRIOR DATING DATA: Last menstrual period (LMP): 11/27/2024 LMP-based estimated date of delivery (ANNE): 09/03/2025. First dating scan (date and location): 02/10/2025 Estimated date of delivery (ANNE) from first dating scan: 08/27/2025 TECHNIQUE: Real-time scanning was performed of the fetus, with image documentation and biometric measurements. Endovaginal scanning: No COMPARISON: [facility], OB <= 14 WEEKS FETUS, 02/10/2025, 14:08. [facility], OB >= 14 WEEKS FETUS, 11/07/2020, 9:52. FINDINGS: General: A single living intrauterine gestation is present. Presentation: Vertex. Placenta: Placental position is posterior , without previa. Amniotic fluid index: 12.8 cm, normal range is 5-24 cm. Single deepest vertical pocket is 3.8 cm. heart rate: 165 beats per minute. Maternal cervical canal: Not well seen. biometrics: Biparietal diameter: 20 weeks 2 days Head circumference: 20 weeks 3 days Abdominal circumference: 21 weeks 4 days Femur length: 21 weeks Clinically estimated gestational age: 19 weeks 6 days Composite gestational age from present scan: 20 weeks 6 days Estimated weight and percentile: 404 g; 98 percentile barium Anatomic survey: Neuro: Ventricles are non-dilated at less than 10 mm. Cisterna magna is normal at 3-11 mm. Cerebellum is normal in size and morphology. Nuchal skin fold: Normal at less than 6 mm between 14-21 weeks gestational age. Face: Nose and lips, facial profile are normal. Spine: No evidence for spina bifida. Heart: Not well seen. Diaphragm: Diaphragm is intact. Stomach: Left-sided stomach is present. Kidneys: No hydronephrosis. Normal is less than 5 mm in 2nd trimester, less than 7 mm in 3rd trimester. Cord: 3-vessel cord has orthotopic insertion. Bladder: Normal in size. Extremities: All 4 extremities identified. IMPRESSION: 1. Single living IUP redemonstrated and interval growth is greater than expected with the estimated weight 98th percentile. Short-term follow-up growth exam recommended. 2. Four-chamber heart and cardiac outflow tracts not well seen; otherwise normal anatomic survey. We strive to produce accurate, complete, and clear reports of imaging services. To assist us in improving patient care, this report was composed using standard report templates and voice recognition software. Therefore, it may contain abnormal punctuation, insertions and/or omissions. Occasional wrong-word or sound-alike substitutions may occur. Though we review the report and make efforts to correct it, we do recommend that the report be read carefully in proper context to recognize any text inaccuracies. Dictated by: Raffaele LEOS Interpreted: Kishor Pa MD on 04/15/2025 at 14:09 Transcribed by: CAM on 04/15/2025 at 14:16 Approved by: Kishor Pa M.D. on 04/15/2025 at 15:17
== END ==
LOC: US 11:06
PROVIDERS: Family Provider Family Medicine; PCP Family Medicine; Referring Provider Nurse Practitioner Obstetrics & Gynecology; Visit Provider Nurse Practitioner Obstetrics & Gynecology
DX: Z34.92 Encounter for supervision of normal pregnancy, unspecified, second trimester (principal); Z3A.20 20 weeks gestation of pregnancy
CPT/HCPCS: 76811

== ENCOUNTER 2025-04-23 20:25 | Outpatient (CLI) | payer OTHER, SELFPAY ==
--- NOTE | 2025-04-23 20:51 | P.TNLD_ITS ---
Visit Information Visit Information Date of evaluation: 04/23/25 Primary OB Provider: Laine Garrett On-call OB Provider: Laine Garrett Reason for Evaluation: Yes other Comments/Additional reasons for admission: Jamie is a at 22w0d by 11 week ultrasound here because she's been increasingly uncomfortable tonight with headache and uterine cramping. Headache mostly gone now after taking 1000 mg acetaminophen approx 1999. Cramping feels like a 'stabbing' pain that starts on the left side and move across her uterus to her R, and whole uterus eventually feels rock hard. Each one lasts about 8 minutes, and she's had about 6 in the last hour. Movement makes it worse. On the pain scale, pain at it's worst can be a 6 or briefly up to a 10 but does NOT remind her of labor. Baby has been very active. Jamie also notes green vaginal discharge and declines bleeding or loss of fluid. Jamie is surprised at how dark her urine color is; thought it was clear at home. Is drinking lots of water and already feeling better. 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 Social History marital status: unmarried,living together household members: significant other and children housing: house pets and animals: Yes (3 dogs: safe with baby.) special tika needs: No seatbelt use: always Tobacco: How many years used: 7 quit status: considering quitting second hand exposure: Yes alcohol intake: never substance use type: does not use and marijuana (Once in a [place], not since . ) well-balanced diet: daily or most days daily servings fruits/ve-4 caffeine: No Review of Systems Review of Systems Narrative: All negative except as mentioned in HPI Exam Vital Signs (past 8 hours): see above Resp Effort & Inspection: normal respiratory effort and able to speak in complete sentences Cardio Rate: regular rate Rhythm: regular rhythm Psych Appearance: grossly normal Mental Status: mental status grossly normal Speech and Movement: speech and movement normal Mood: congruent mood Affect: normal affect Attitude: cooperative Thought Process: normal Thought Content: normal Judgment: judgment good Evaluation Evaluation Comments: FHR via doppler: 151 bpm UA sent to lab; UC not indicated. Diagnosis, Plan/Disposition Final Diagnosis (1) Supervision of normal intrauterine in multigravida: Status: Acute (2) uterine contractions: Status: Acute (3) Vaginitis affecting in second trimester, antepartum: Status: Acute Plan/Disposition Plan: UA sent to lab; will reflex to UC PRN. Aptima self-collected and sent to [facility] for BV, yeast, trich, GC/CT. Expect results next week. Reviewed ease of dehydration during , and overactive uterus with subsequent pregnancies Dischcharge home; CNM will follow up when labs result. OB Disposition: home
[2025-04-23 21:04] LABS: Appearance Urine UA CLOUDY; Bilirubin Urine UA NEGATIVE (NEGATIVE); Color Urine UA YELLOW; Glucose Urine UA NEGATIVE (Negative); Ketones Urine UA TRACE (NEGATIVE); Leukocyte Esterase Urine UA NEGATIVE (NEGATIVE); Nitrite Urine UA NEGATIVE (Negative); Occult Blood Urine UA NEGATIVE (Negative); Protein Urine UA NEGATIVE (Negative); Specific Gravity Urine UA 1.015 (1.000-1.035); Urobilinogen Urine UA 1.0 E.U./dL (0.2)
[2025-04-23 21:08] LABS: pH Urine UA 7.0 (4.5-8.0)
[2025-04-23 21:13] LABS: Culture Indicated Urine Cult Not Indicated
== END 2025-04-23 21:30 | disposition home or self-care (01) ==
LOC: LABOR 21:50 → OB 04-26 12:11
PROVIDERS: Family Provider Family Medicine; PCP Family Medicine; Referring Provider Advanced Practice Midwife; Visit Provider Advanced Practice Midwife
DX: O47.02 False labor before 37 completed weeks of gestation, second trimester (principal); O23.592 Infection of other part of genital tract in pregnancy, second trimester; Z3A.22 22 weeks gestation of pregnancy
CPT/HCPCS: 81001; G0378; G0379

== ENCOUNTER → 2025-05-13 12:05 | Outpatient (CLI) | payer OTHER, SELFPAY ==
--- NOTE | 2025-05-13 12:06 | DI.US.S_ITS ---
PROCEDURE: US OB FOLLOW UP INDICATIONS: HEART VIEWS NOT SEEN OUTSIDE/PRIOR DATING DATA: Last menstrual period (LMP): 11/27/24. LMP-based estimated date of delivery (ANNE): 09/03/25. First dating scan (date and location): 02/10/25. Estimated date of delivery (ANNE) from first dating scan: 08/27/25. The calculations are made using the clinical ANNE of 09/03/25 TECHNIQUE: Real-time scanning was performed of the fetus, with image documentation. Endovaginal scanning: No COMPARISON: None. FINDINGS: A single living intrauterine gestation is present. Presentation: Breech. Placenta: Placental position is posterior, without previa. Amniotic fluid index: 17.1 cm, normal range is 5-24 cm. Single deepest vertical pocket is 5.4 cm. heart rate: 169 beats per minute. Maternal cervical canal: Closed and 3.1 cm long. Normal lower limit is 2.5 cm. Biparietal diameter 6.1 cm 24 weeks five days Head circumference 22.6 cm, 24 weeks four days Abdominal circumference 23.3 cm 27 weeks five days Femur length 4.5 cm 24 weeks six days Clinically estimated gestational age: 23 weeks six days Estimated gestational age from initial scan: 25 weeks three days Estimated weight 906 g, greater than 99th percentile Images of the four chambered heart and cardiac outflow tracts were acquired and appear within normal limits.. IMPRESSION: Completion of anatomic survey with visualization of cardiac structures. A single living intrauterine with estimated weight above the 99th percentile for the clinically estimated gestational age. Composite gestational age by today's measurements is one week four days ahead of the clinically estimated gestational age. Closed cervix and normal amniotic fluid volume. Dictated by: Fatimah Machuca M.D. on 05/17/2025 at 13:03 Approved by: Fatimah Machuca M.D. on 05/17/2025 at 13:09
== END ==
LOC: US 12:05
PROVIDERS: Family Provider Family Medicine; PCP Family Medicine; Referring Provider Nurse Practitioner Obstetrics & Gynecology; Visit Provider Nurse Practitioner Obstetrics & Gynecology
DX: Z34.82 Encounter for supervision of other normal pregnancy, second trimester (principal); Z3A.23 23 weeks gestation of pregnancy
CPT/HCPCS: 76816

== ENCOUNTER 2025-06-19 19:32 | Observation (INO) | payer OTHER, SELFPAY ==
--- NOTE | 2025-06-19 | DI.US.S_ITS ---
PROCEDURE: US OB LIMITED INDICATIONS: cervical length OUTSIDE/PRIOR DATING DATA: Last menstrual period (LMP): 11/27/2024. LMP-based estimated date of delivery (ANNE): 09/03/2025. First dating scan (date and location): 01/31/2025. Estimated date of delivery (ANNE) from first dating scan: 08/27/2025 TECHNIQUE: Real-time scanning was performed of the fetus, with image documentation. Endovaginal scanning: Not performed. COMPARISON: Located within [facility], OB LIMITED, 03/01/2021, 16:51. FINDINGS: A single living intrauterine gestation is present. Presentation: Vertex. Placenta: Placental position is fundal/posterior, without previa. Amniotic fluid index: 14.5 cm, normal range is 5-24 cm. Single deepest vertical pocket is 4.7 cm. heart rate: 152 beats per minute. Maternal cervical canal: 3.9 cm long. Normal lower limit is 2.5 cm. Estimated gestational age clinically is 30 weeks 1 day. IMPRESSION: Single live intrauterine gestation. Cervical length within normal limits. Dictated by: Agustina Chapa M.D. on 06/19/2025 at 20:56 Approved by: Agustina Chapa M.D. on 06/19/2025 at 21:00
[2025-06-19 20:25] LABS: Appearance Urine UA CLEAR; Bilirubin Urine UA NEGATIVE (NEGATIVE); Color Urine UA YELLOW; Glucose Urine UA NEGATIVE (Negative); Ketones Urine UA TRACE (NEGATIVE); Leukocyte Esterase Urine UA NEGATIVE (NEGATIVE); Nitrite Urine UA NEGATIVE (Negative); Occult Blood Urine UA TRACE-INTACT (Negative); Protein Urine UA 1+ (Negative); Specific Gravity Urine UA 1.020 (1.000-1.035); Urobilinogen Urine UA 0.2 E.U./dL (0.2)
--- NOTE | 2025-06-19 20:27 | P.TNLD_ITS ---
Visit Information Visit Information Date of evaluation: 06/19/25 Primary OB Provider: Eusebia Ruiz On-call OB Provider: Eusebia Ruiz Reason for Evaluation: Yes pre-term labor Comments/Additional reasons for admission: 20YO @ 30wks 1 day by 11wk US dating here for evaluation of contractions. Started feeling contractions this afternoon the slowly progressed in frequency and intensity. Tried a bath and rest, but they intensified to some she rated at 8/10 with pack pain andpelvic pressure. +FM. No vaginal bleeding or LOF. No intercourse or change in activity in the last 24 hours. 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 Social History marital status: unmarried,living together household members: significant other and children housing: house pets and animals: Yes (3 dogs: safe with baby.) special tika needs: No seatbelt use: always Tobacco: How many years used: 7 quit status: considering quitting second hand exposure: Yes alcohol intake: never substance use type: does not use and marijuana (Once in a [place], not since . ) well-balanced diet: daily or most days daily servings fruits/ve-4 caffeine: No Review of Systems Review of Systems ROS: Yes All systems reviewed with the patient and are negative except as otherwise documented Exam Vital Signs (past 8 hours): see above Resp Effort & Inspection: normal respiratory effort and able to speak in complete sentences Cardio Rate: regular rate Rhythm: regular rhythm Presentation: vertex Objective Imaging OB US >14wks Limited: Cervical length: My impression: CL 4cm Radiologist's impression: PROCEDURE: US OB LIMITED INDICATIONS: cervical length OUTSIDE/PRIOR DATING DATA: Last menstrual period (LMP): 11/27/2024. LMP-based estimated date of delivery (ANNE): 09/03/2025. First dating scan (date and location): 01/31/2025. Estimated date of delivery (ANNE) from first dating scan: 08/27/2025 TECHNIQUE: Real-time scanning was performed of the fetus, with image documentation. Endovaginal scanning: Not performed. COMPARISON: [facility], OB LIMITED, 03/01/2021, 16:51. FINDINGS: A single living intrauterine gestation is present. Presentation: Vertex. Placenta: Placental position is fundal/posterior, without previa. Amniotic fluid index: 14.5 cm, normal range is 5-24 cm. Single deepest vertical pocket is 4.7 cm. heart rate: 152 beats per minute. Maternal cervical canal: 3.9 cm long. Normal lower limit is 2.5 cm. Estimated gestational age clinically is 30 weeks 1 day. IMPRESSION: Single live intrauterine gestation. Cervical length within normal limits. Dictated by: Agustnia Chapa M.D. on 06/19/2025 at 20:56 Approved by: Agustina Chapa M.D. on 06/19/2025 at 21:00 Labs Labs: UA: +1 protein and +1 ketones, otherwise unremarkable Wet Prep Tric BV Maira Final 06/19/25-2035 White blood cells Occasional WBC seen Clue cells: None seen Yeast: Many Trichomonas: None seen Hyphae yeast. Evaluation Evaluation Baseline heart rate: 150 Variability: Moderate (6-25) monitor accelerations: Present Monitor Decelerations: Absent Contraction Frequency (minutes): 0 Uterine Contraction Intensity: Mild Category of Tracing: Reactive Cervical dilation (cm): 1 Cervical effacement (%): 0 station: -4 Comments: Cramping decreased upon arrival, but low back pain persisted. No contractions by toco, 1 reported by patient while in triage. Diagnosis, Plan/Disposition Final Diagnosis (1) uterine contractions: Status: Acute (2) Vulvovaginal candidiasis: Status: Acute Plan/Disposition Plan: Reassuranc egiven for no significant cervical change/ not in labor. fFN and GBS swabs collected, then discarded after CL US resulted. Discharge to home with routine labor precautions. Teroconazole 0.8% TV x3 days Rx provided. Follow-up in clinic as previously scheduled. Total face to face time with patient was 60 minutes. A total of 60 minutes was spent on this visit. >50% of the visit was spent counseling and coordinating care. OB Disposition: home
[2025-06-19 20:37] LABS: pH Urine UA 6.5 (4.5-8.0)
[2025-06-19 20:50] LABS: Culture Indicated Urine Cult Not Indicated
== END 2025-06-19 21:00 | disposition home or self-care (01) ==
LOC: LABOR 19:35
PROVIDERS: Admitting Provider Nurse Practitioner Obstetrics & Gynecology; Family Provider Family Medicine; PCP Family Medicine; Referring Provider Nurse Practitioner Obstetrics & Gynecology; Visit Provider Nurse Practitioner Obstetrics & Gynecology
DX: O98.813 Other maternal infectious and parasitic diseases complicating pregnancy, third trimester (principal); O47.03 False labor before 37 completed weeks of gestation, third trimester; B37.31 Acute candidiasis of vulva and vagina; Z3A.30 30 weeks gestation of pregnancy
CPT/HCPCS: 59025; 76815; 81001; 87210; G0378; G0379

== ENCOUNTER 2025-06-26 17:49 | Observation (INO) | payer OTHER, SELFPAY ==
[2025-06-26 18:09] LABS: Appearance Urine UA CLEAR; Bilirubin Urine UA NEGATIVE (NEGATIVE); Color Urine UA YELLOW; Glucose Urine UA NEGATIVE (Negative); Ketones Urine UA NEGATIVE (NEGATIVE); Leukocyte Esterase Urine UA NEGATIVE (NEGATIVE); Nitrite Urine UA NEGATIVE (Negative); Occult Blood Urine UA NEGATIVE (Negative); Protein Urine UA NEGATIVE (Negative); Specific Gravity Urine UA <=1.005 (1.000-1.035); Urobilinogen Urine UA 0.2 E.U./dL (0.2)
[2025-06-26 18:10] LABS: pH Urine UA 6.5 (4.5-8.0)
--- NOTE | 2025-06-26 18:42 | PM.OBTRLD ---
Visit Information Visit Information Date of evaluation: 06/26/25 Primary OB Provider: Eusebia Ruiz On-call OB Provider: Eusebia Ruiz Reason for Evaluation: Yes pre-term labor and Yes other Comments/Additional reasons for admission: 20YO @ [id number] by 11wk US presents for evaluation of contractions and decreased FM. Has been feeling regular, mild cramping all day, about every 15 minutes. Prior to coming in, she had 2 very strong contractions, making her nauseous. Has not been feeling much FM all day. No VB or LOF. Uncomplicated PN care with CNMS. Seen in triage on 06/19/25 for contractions with CL of 3.9cm and vulvovaginal candidiasis treated with terconazole. Contractions stopped for a few days until starting back up mildly on [place]. Has had sex in the last 24 hours. Vital Signs Vital Signs: BP 119/65, HR 97bpm, T 36.1C Temporal. 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 Social History marital status: unmarried,living together household members: significant other and children housing: house pets and animals: Yes (3 dogs: safe with baby.) special tika needs: No seatbelt use: always Tobacco: How many years used: 7 quit status: considering quitting second hand exposure: Yes alcohol intake: never substance use type: does not use and marijuana (Once in a [place], not since . ) well-balanced diet: daily or most days daily servings fruits/ve-4 caffeine: No Review of Systems Review of Systems ROS: Yes All systems reviewed with the patient and are negative except as otherwise documented Exam Vital Signs (past 8 hours): see above Speculum Exam - Vagina: normal appearance of the vagina Speculum Exam - Cervix: normal appearance of the cervix and cervical os open (1cm) OB/External & Speculum: cervical os open (1cm) Manual OB Exam: dilated 1, effaced 25% and station high Presentation: vertex Other: CE unchanged from 06/19/25 Objective Labs Labs: Laboratory Results - last 24 hr 06/26/25 17:57 Urine Color Yellow Urine Appearance Clear Urine pH 6.5 Ur Specific May <=1.005 Urine Protein Negative Urine Glucose (UA) Negative Urine Ketones Negative Urine Occult Blood Negative Urine Nitrate Negative Urine Bilirubin Negative Urine Urobilinogen 0.2 Ur Leukocyte Esterase Negative Wet Prep Tric BV Maira Final 06/26/25-1914 White blood cells Many WBCs seen Clue cells: None seen Yeast: None seen Trichomonas: None seen Evaluation Evaluation Baseline heart rate: 140 Variability: Moderate (6-25) monitor accelerations: Present Monitor Decelerations: Absent Category of Tracing: Reactive Cervical dilation (cm): 1 Cervical effacement (%): 20 station: -4 Comments: No contractions, per toco and patient. Diagnosis, Plan/Disposition Final Diagnosis (1) uterine contractions: Status: Acute Plan/Disposition Plan: FM was felt by [place] with no contractions over 1 hour. fFN was collected, but not sent given no change in CE. Reassurance given for low concern for labor. Encouraged rest and hydration. Encouraged her to call if painful contractions recur. Follow-up in clinic at 32 weeks as previously scheduled. OB Disposition: home
== END 2025-06-26 19:07 | disposition home or self-care (01) ==
LOC: LABOR 17:52
PROVIDERS: Admitting Provider Nurse Practitioner Obstetrics & Gynecology; Family Provider Family Medicine; PCP Family Medicine; Referring Provider Nurse Practitioner Obstetrics & Gynecology; Visit Provider Nurse Practitioner Obstetrics & Gynecology
DX: O47.03 False labor before 37 completed weeks of gestation, third trimester (principal); O36.8130 Decreased fetal movements, third trimester, not applicable or unspecified; Z3A.31 31 weeks gestation of pregnancy
CPT/HCPCS: 59025; 81003; 87210; G0378; G0379